=== PATIENT | female | born 1970 | race Caucasian/White ===

== ENCOUNTER 2017-01-25 23:15 | Emergency (ER) | payer MEDICAID ==
[~2017-01-25] VITALS: Ht 167.6 cm; Wt 53.2 kg
[~2017-01-25 23:15] MED LIST: LACT1CAP65 PO; LEVO750T46 PO
[2017-01-25 23:50] LABS: BASOPHILS % (AUTO) 0.4 % (0-1); EOSINOPHILS # (AUTO) 0.7 X10'3 (0-0.9); EOSINOPHILS % (AUTO) 7.6 % (0-6); HEMATOCRIT 37.5 % (35.0-45.0); HEMOGLOBIN 12.6 g/dl (12.0-16.0); LYMPHOCYTES # (AUTO) 2.5 X10'3 (1.1-4.8); LYMPHOCYTES % (AUTO) 29.7 % (21-51); MEAN CORPUSCULAR HEMOGLOBIN 30.5 PG (27.0-31.0); MEAN CORPUSCULAR HGB CONC 33.6 % (33.0-36.5); MEAN CORPUSCULAR VOLUME 90.8 FL (78-98); MEAN PLATELET VOLUME 8.3 FL (7.4-10.4); MONOCYTES # (AUTO) 0.7 X10'3 (0-0.9); MONOCYTES % (AUTO) 7.9 % (2-12); NEUTROPHILS # (AUTO) 4.7 X10'3 (1.8-7.7); NEUTROPHILS % (AUTO) 54.4 % (42-75); PLATELET COUNT 288 X10'3 (140-440); RED BLOOD COUNT 4.13 X10'6 (4.20-5.60); RED CELL DISTRIBUTION WIDTH 13.2 % (11.5-14.5); WHITE BLOOD COUNT 8.6 X10'3 (4.5-11.0)
[2017-01-26 00:04] LABS: D-DIMER 0.37 MG/L FEU (0-0.50)
[2017-01-26 00:10] LABS: ALANINE AMINOTRANSFERASE 24 U/L (12-78); ALBUMIN 3.4 G/DL (3.4-5.0); ALKALINE PHOSPHATASE 64 IU/L (46-116); ANION GAP 10 (8-16); ASPARTATE AMINO TRANSFERASE 20 U/L (10-37); BILIRUBIN,TOTAL 0.2 MG/DL (0.1-1.0); BLOOD UREA NITROGEN 16 MG/DL (7-18); BUN/CREATININE RATIO 23.2 (6.6-38.0); CALCIUM 8.6 MG/DL (8.5-10.1); CHLORIDE 105 MMOL/L (99-107); CREATININE 0.69 MG/DL (0.40-0.90); GLUCOSE 108 MG/DL (70-104); POTASSIUM 3.7 MMOL/L (3.5-5.1); SODIUM 140 MMOL/L (135-145); TOTAL CARBON DIOXIDE 25.1 MMOL/L (24-32); TOTAL PROTEIN 6.9 G/DL (6.4-8.2); eGFR > 90 ML/MIN
[2017-01-26 00:15] LABS: MAGNESIUM 1.8 MG/DL (1.5-2.4)
[2017-01-26 00:51] VITALS: BP 131/75
== END 2017-01-26 00:52 | disposition home or self-care (01) ==
LOC: ER 23:16
DX: R06.02 Shortness of breath (principal); R07.89 Other chest pain; Z79.899 Other long term (current) drug therapy
CPT/HCPCS: 36415; 71020; 80053; 83735; 83880; 84484; 85025; 85379; 93005; 99285

== ENCOUNTER 2018-04-26 10:21 | Day surgery (SDC) | payer MEDICAID ==
[2018-04-24 12:08] LABS: CLARITY,URINE CLEAR (Clear); COLOR,URINE YELLOW (Yellow); GLUCOSE, URINE NEGATIVE (Neg); KETONES,URINE NEGATIVE (Neg); LEUKOCYTE ESTERASE ,URINE NEGATIVE (Neg); NITRITES, URINE NEGATIVE (Neg); OCCULT BLOOD,URINE NEGATIVE (Neg); PROTEIN,URINE NEGATIVE (Neg); UROBILINOGEN,URINE 0.2 E.U/dL (0.2-1.0)
[2018-04-24 12:09] LABS: UA COLLECTION TYPE CLN CATCH MIDSTREAM
[2018-04-24 12:13] LABS: BASOPHILS # (AUTO) 0.1 X10'3 (0-0.2); BASOPHILS % (AUTO) 1.1 % (0-1); EOSINOPHILS # (AUTO) 0.4 X10'3 (0-0.9); LYMPHOCYTES # (AUTO) 2.1 X10'3 (1.1-4.8); LYMPHOCYTES % (AUTO) 32.9 % (21-51); MEAN CORPUSCULAR HGB CONC 32.7 g/dL (33.0-36.5); MEAN CORPUSCULAR VOLUME 82.6 FL (78-98); MEAN PLATELET VOLUME 9.1 FL (7.4-10.4); MONOCYTES # (AUTO) 0.5 X10'3 (0-0.9); MONOCYTES % (AUTO) 7.5 % (2-12); NEUTROPHILS # (AUTO) 3.2 X10'3 (1.8-7.7); NEUTROPHILS % (AUTO) 51.5 % (42-75); PRE OP PLATELET COUNT 300 X10'3 (140-440); RED BLOOD COUNT 3.99 X10'6 (4.20-5.60); RED CELL DISTRIBUTION WIDTH 14.5 % (11.5-14.5)
[2018-04-24 12:15] LABS: PRE OP HEMOGLOBIN 10.8 g/dL (12.0-16.0)
[2018-04-24 12:18] LABS: ALBUMIN 3.5 G/DL (3.4-5.0); ALBUMIN/GLOBULIN RATIO 0.9 (1.1-1.5); ALKALINE PHOSPHATASE 61 IU/L (46-116); BLOOD UREA NITROGEN 17 MG/DL (7-18); BUN/CREATININE RATIO 32.7 (6.6-38.0); CALCIUM 8.8 MG/DL (8.5-10.1); CHLORIDE 106 MMOL/L (99-107); CREATININE 0.52 MG/DL (0.40-0.90); PRE OP ALT 20 U/L (30-65); PRE OP ANION GAP 7 (8-16); PRE OP AST 21 U/L (10-37); PRE OP BILIRUB, TOTAL 0.2 MG/DL (0.0-1.0); PRE OP GLUCOSE 78 MG/DL (70-104); PRE OP POTASSIUM 3.5 MMOL/L (3.4-5.1); PRE OP SODIUM 140 MMOL/L (135-145); TOTAL CARBON DIOXIDE 26.9 MMOL/L (24-32); TOTAL PROTEIN 7.2 G/DL (6.4-8.2); eGFR > 90 ML/MIN
[2018-04-24 12:34] LABS: HCG SERUM QL NEGATIVE
[~2018-04-26] VITALS: Ht 167.6 cm; Wt 56.7 kg
[2018-04-26] VITALS (12 sets, daily range): BP systolic 97–130; BP diastolic 54–73
[~2018-04-26 10:21] MED LIST changes: -LACT1CAP65 PO; -LEVO750T46 PO; +MULT-1085 PO; +cefotetan 2gm/isosm dext IVPB 50 ML IV ONE; +famotidine 20mg tablet PO ONE; +ringers solution, lacted 1,000 ML IV SCH
[2018-04-26] MEDS ORDERED: ringers solution, lacted 1,000 ML IV SCH (11:16)
[2018-04-26] MEDS ORDERED: morphine 4 MG/ML inj SYRINge IV PRN ×2 (11:20)
[2018-04-26] MEDS ORDERED: ondansetron/PF 4mg/2ml inj IV PRN (11:20)
[2018-04-26] MEDS ORDERED: meperidine/PF 25mg/ml syringe IV PRN ×3 (11:20)
[2018-04-26] MEDS ORDERED: proCHLORperazine 10 MG/2 ml inj IV PRN (11:20)
[2018-04-26] MEDS ORDERED: fentaNYL/PF 50MCG/1 ML 2ML syringe ONE (12:08)
[2018-04-26] MEDS ORDERED: midazolam 2 mg/2 ml injection ONE (12:09)
[2018-04-26] MEDS ORDERED: propofol inj 20 ML IV ONE (12:10)
[2018-04-26] MEDS ORDERED: ondansetron/PF 4mg/2ml inj ONE (12:19)
--- NOTE | 2018-04-26 12:46 | NUR ---
Received from OR via [facility] , accompanied by Anesthesiologist GERALDINE and report given by Anesthesiolgist. PATIENT WITH 20G PIV IN LEFT WRIST AREA, DENIES PAIN. ONE DIANA PAD IN PLACE THAT IS CDI. ZANDRA TRAN FOR COMFORT. LR RUNNING AT 100. POSITIONED TO COMFORT. Addendum: 04/26/18 at 1256 by Harjeet Talley RN, RN Amended: Links added.
--- NOTE | 2018-04-26 14:03 | NUR ---
ALL DC CRITERIA HAS BEEN MET. IV TAKEN OUT WITHOUT COMPLICATIONS. ALL INSTRUCTIONS COVERED AND ALL QUESTIONS ANSWERED. DRESSINGS CDI. OUT VIA WHEELCHAIR TO PERSONAL VEHICLE WHERE PATIENT WAS SECURED IN AND DRIVEN HOME BY FAMILY. DENIES PAIN, DRESSED SELF INDEPENDENTLY. Addendum: 04/26/18 at 1407 by Harjeet Talley RN, RN Amended: Links added.
== END 2018-04-26 14:06 | disposition home or self-care (01) ==
LOC: PAS 10:21
PROVIDERS: ATTEND Obstetrics & Gynecology Obstetrics
DX: N92.1 Excessive and frequent menstruation with irregular cycle (principal); Z87.440 Personal history of urinary (tract) infections
CPT/HCPCS: 36415; 58558; 80053; 81003; 82948; 84703; 85025; 86885; 86900; 86901; 93005; J2250; J2405; J2704; J3010; J7030; A4355; A7000; J7120